=== PATIENT | female | born 1945 | race Caucasian/White ===

== ENCOUNTER 2018-01-22 17:34 | Inpatient (IN) ==
[2018-01-22] MEDS ORDERED: Clindamycin 600 mg/NS Premix 600 MG/50 ML PIGGYBACK IV.SIG ONE (19:51)
[2018-01-22] MEDS ORDERED: Acetaminophen 325 MG Tablet PO ONE (19:51)
[2018-01-22] MEDS ORDERED: Sod Chloride 0.9% Inj 1,000 ML IV.SIG SCH (20:00)
[2018-01-22 20:09] LABS: Baso % (Auto) 0.3 % (0.0-2.0); Eos % (Auto) 0.3 % (0.0-4.0); Hematocrit 34.1 % (35.0-46.0); Hemoglobin 11.6 gm/dL (11.6-15.3); Lymph # (Auto) 0.6 th/mm3 (1.0-4.8); Lymph % (Auto) 7.1 % (9.0-44.0); Mean Corpuscular Volume 103.2 fL (80.0-100.0); Mean Platelet Volume 6.5 fL (7.0-11.0); Mono # (Auto) 0.3 th/mm3 (0.0-0.9); Mono % (Auto) 2.9 % (0.0-8.0); Neut # (Auto) 8.2 th/mm3 (1.8-7.7); Neut % (Auto) 89.4 % (16.0-70.0); Platelet Count 198 th/mm3 (150-450); Red Cell Distribution Width 12.5 % (11.6-17.2); White Blood Count 9.1 th/mm3 (4.0-11.0)
[2018-01-22 20:16] LABS: Chloride 100 meq/L (98-107); Potassium 3.6 meq/L (3.5-5.1); Sodium 134 meq/L (136-145)
--- NOTE | 2018-01-22 20:19 | XR ---
EXAM DATE: 01/22/2018 8:15 PM EDT AGE/SEX: 72 years / Female INDICATIONS: Right foot ulcer with drainage and fever. CLINICAL DATA: This is the patient's initial encounter. Patient reports that signs and symptoms have been present for 4 - 6 days and indicates a pain score of 5/10. MEDICAL/SURGICAL HISTORY: None. . Right foot surgery. COMPARISON: POI, XR FOOT (MIN 3 VIEWS), RIGHT, 06/27/2017. . FINDINGS: 3 views of the right foot. Diffuse bony mineralization. Compression loraine in place at the fifth met atarsal base. No fracture line identified. Alignment within normal limits. No evidence of focal bone erosion. Prominent soft tissue swelling of the plantar aspect of the great toe adjacent to the metata rsophalangeal joint. Prominent osteophytes of the second and third toe interphalangeal joints. CONCLUSION: 1. Severe plantar soft tissue swelling. No evidence of focal bone erosion. 2. 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 Electronically signed by: Félix Miller MD 01/22/2018 8:17 PM EDT
[2018-01-22 20:20] LABS: Albumin 3.7 g/dL (3.4-5.0); Anion Gap 10 meq/L (5-15); Blood Urea Nitrogen 9 mg/dL (7-18); Calcium 8.6 mg/dL (8.5-10.1); Carbon Dioxide 23.7 meq/L (21.0-32.0); Glucose,Random 108 mg/dL (74-106)
[2018-01-22 20:23] LABS: Alanine Aminotransferase 24 U/L (10-53); Aspartate Aminotransferase 20 U/L (15-37); Glomerular Filtration Rate 70 mL/min (>89)
[2018-01-22 20:25] LABS: Total Protein 7.6 g/dL (6.4-8.2)
[2018-01-22 20:26] LABS: Alkaline Phosphatase 89 U/L (45-117)
--- NOTE | 2018-01-22 20:39 | ED ---
HPI General Chief complaint: Skin/Abscess/Foreign Body Stated complaint: R foot ulcer x 4 days Time Seen by Provider: 01/22/18 19:46 Source: patient Mode of arrival: ambulatory Limitations: no limitations History of Present Illness HPI narrative: Patient is a 72 year old female who comes in complaining of drainage from her right foot. She has a nonhealing ulcer to this foot and says it occasionally gets infected. She says she has noticed drainage from the wound for the past 3 days. She also reports feeling weak and generally ill. She has not taken anything for her symptoms. She denies cough or cold. She denies urinary symptoms. She denies nausea or vomiting. Severity is mild to moderate. Related Data Home Medications Medication Instructions Recorded Confirmed atorvastatin 40 mg PO DAILY 01/22/18 01/22/18 duloxetine [Cymbalta] 60 mg PO DAILY 01/22/18 01/22/18 gabapentin 400 mg PO QID 01/22/18 01/22/18 hydrocodone-acetaminophen 1 tab PO QID 01/22/18 01/22/18 levothyroxine 100 mcg PO DAILY 01/22/18 01/22/18 Allergies Allergy/AdvReac Type Severity Reaction Status Date / Time penicillin G Allergy Severe Hives Unverified 01/22/18 18:06 codeine Allergy Mild Rash Unverified 01/22/18 18:06 Review of Systems ROS: all other systems reviewed are negative Constitutional Reports chills and Reports fever(s) ENT Denies dizziness Cardiovascular Denies chest pain Respiratory Denies cough and Denies dyspnea Gastrointestinal Denies nausea and Denies vomiting Musculoskeletal Reports myalgias Integumentary/Breasts Reports wounds Neurologic Denies focal weakness and Denies numbness PMFSH Medical History Medical History Hx of ectopic (Acute) Hx of fracture of femur (Acute) Hx of fracture of right hip (Acute) Hx of fracture of foot (Acute) High cholesterol (Acute) Thyroid disease (Acute) Charcot Lashawn Tooth muscular atrophy (Acute) Social History Social History Substance History: No History of Abuse Second Hand Smoke Exposure: No Smoking Status: Never smoker How Often Do You Have a Drink Containing Alcohol: 2 to 3 times a week Recent Travel in [facility] within the Last 8 Weeks: No Recent Out of Country Travel within the Last 8 Weeks: No Immunization History Tetanus Immunization: >5 Years Hx Influenza Vaccine This Season: Yes Exam Narrative Exam Narrative: GENERAL: Awake and alert, in no acute distress. SKIN: Ulcer to the bottom of the right foot, oozing pus. Erythema of the right foot. HEAD: Atraumatic. Normocephalic. EYES: Pupils equal and round. No scleral icterus. ENT: Mucous membranes pink and moist. NECK: Trachea midline. No JVD. CARDIOVASCULAR: Regular rate and rhythm. No murmur appreciated. RESPIRATORY: No accessory muscle use. Clear to auscultation. Breath sounds equal bilaterally. GASTROINTESTINAL: Abdomen soft, non-tender, nondistended. MUSCULOSKELETAL: No obvious deformities. No clubbing. No cyanosis. No edema. NEUROLOGICAL: Awake and alert. No obvious cranial nerve deficits. Motor grossly within normal limits. Normal speech. PSYCHIATRIC: Appropriate mood and affect; insight and judgment normal. Course Initial Documented Vital Signs Temperature 100.2 F H 01/22/18 18:04 Pulse Rate 120 H 01/22/18 18:04 Respiratory Rate 16 01/22/18 18:04 Blood Pressure 138/62 01/22/18 18:04 Pulse Oximetry 97 01/22/18 18:04 Last Documented Vital Signs Temperature 97.8 F 01/23/18 00:00 Pulse Rate 97 H 01/23/18 00:00 Respiratory Rate 20 01/23/18 00:00 Blood Pressure 110/56 L 01/23/18 00:00 Pulse Oximetry 97 01/23/18 00:00 Medical Decision Making MDM Narrative Medical decision making narrative: Patient is a 72-year-old female who comes in due to concerns for infection of her foot. Exam shows an ulcer to the bottom of the foot that is draining pus. IV established, labs sent. Patient given IV fluids, Tylenol, clindamycin. XR of the foot shows soft tissue swelling, no evidence of cristine involvement. Patient meets SIRS criteria. Admitted for further management. Medical Screen Exam Complete: Yes Emergency Medical Condition: Yes Differential Diagnosis Differential Diagnosis: Cellulitis versus abscess versus sepsis Medical Records Medical records reviewed: Yes I reviewed the patient's medical records. Lab Data Lab results reviewed: Yes I reviewed the patient's lab results. Result diagrams: 01/22/18 20:00 01/22/18 20:00 Lab Results 01/22/18 01/22/18 01/22/18 Range/Units 20:00 20:00 20:00 CBC w Diff Auto diff final WBC 9.1 (4.0-11.0) th/mm3 RBC 3.30 L (4.00-5.30) mil/mm3 Hgb 11.6 (11.6-15.3) gm/dL Hct 34.1 L (35.0-46.0) % MCV 103.2 H (80.0-100.0) fL MCH 35.0 H (27.0-34.0) pg MCHC 34.0 (32.0-36.0) % RDW 12.5 (11.6-17.2) % Plt Count 198 (150-450) th/mm3 MPV 6.5 L (7.0-11.0) fL Neut % (Auto) 89.4 H (16.0-70.0) % Lymph % (Auto) 7.1 L (9.0-44.0) % [place] % (Auto) 2.9 (0.0-8.0) % Eos % (Auto) 0.3 (0.0-4.0) % Baso % (Auto) 0.3 (0.0-2.0) % Neut # (Auto) 8.2 H (1.8-7.7) th/mm3 Lymph # (Auto) 0.6 L (1.0-4.8) th/mm3 [place] # (Auto) 0.3 (0.0-0.9) th/mm3 Eos # (Auto) 0.0 (0.0-0.4) th/mm3 Baso # (Auto) 0.0 (0.0-0.2) th/mm3 WBC Differential . Differential Comment . Sodium 134 L (136-145) meq/L Potassium 3.6 (3.5-5.1) meq/L Chloride 100 (98-107) meq/L Carbon Dioxide 23.7 (21.0-32.0) meq/L Anion Gap 10 (5-15) meq/L BUN 9 (7-18) mg/dL Creatinine 0.81 (0.50-1.00) mg/dL Estimated GFR 70 L (>89) mL/min Random Glucose 108 H (74-106) mg/dL Lactic Acid 1.1 (0.4-2.0) mmol/L Calcium 8.6 (8.5-10.1) mg/dL Total Bilirubin 0.8 (0.2-1.0) mg/dL AST 20 (15-37) U/L ALT 24 (10-53) U/L Alkaline Phosphatase 89 (45-117) U/L Total Protein 7.6 (6.4-8.2) g/dL Albumin 3.7 (3.4-5.0) g/dL Imaging Data Radiologist's impression: Foot X-Ray 01/22/18 19:52 CONCLUSION: 1. Severe plantar soft tissue swelling. No evidence of focal bone erosion. 2. 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 Discharge Plan Discharge Disposition Patient Disposition: 30 Still Patient Discharge Condition Condition: Stable Discharge Details Diagnosis: Cellulitis, SIRS (systemic inflammatory response syndrome) Physicians Team ED Provider: Jen Machado Primary Care Provider: UNKNOWN, Attending Provider: Prerna Dimas Discharge Interventions Interventions: ED Discharge Assessment Last Done: 01/22/18 21:48 Vital Signs Last Done: 01/22/18 19:50 Status ED Status: Left Department Discharge Information Discharge Date/Time: 01/22/18 21:50
[2018-01-22] MEDS ORDERED: Morphine Inj 4 MG/ML Vial IV.PUSH PRN (20:57)
[2018-01-22] MEDS ORDERED: Acetaminophen 325 MG Tablet PO PRN (20:58)
[2018-01-22] MEDS ORDERED: Bisacodyl 10 MG Supp RECTAL PRN (20:58)
[2018-01-22] MEDS: Senna/Docusate Sodium 8.6/50 MG Tablet PO SCH (21:47)
[2018-01-22] MEDS: Gabapentin 400 MG Capsule PO SCH (22:05)
[2018-01-23] MEDS: Clindamycin 900 mg/NS Premix 900 MG/50 ML PIGGYBACK IV.SIG SCH ×4 (04:55→22:31)
[2018-01-23 08:49] LABS: Chloride 103 meq/L (98-107); Potassium 3.7 meq/L (3.5-5.1); Sodium 137 meq/L (136-145)
[2018-01-23] MEDS: Duloxetine 60 MG DR Capsule PO SCH (08:51)
[2018-01-23] MEDS: Gabapentin 400 MG Capsule PO SCH ×4 (08:51→21:22)
[2018-01-23] MEDS: Senna/Docusate Sodium 8.6/50 MG Tablet PO SCH (08:51)
[2018-01-23] MEDS: Levothyroxine 100 MCG Tablet PO SCH (08:51)
[2018-01-23] MEDS: Enoxaparin Inj 40 MG/0.4 ML Syringe SQ SCH (08:52)
[2018-01-23 09:17] LABS: Calcium 8.3 mg/dL (8.5-10.1)
[2018-01-23 09:18] LABS: Anion Gap 10 meq/L (5-15); Carbon Dioxide 24.3 meq/L (21.0-32.0)
[2018-01-23 09:23] LABS: Alanine Aminotransferase 24 U/L (10-53); Albumin 3.1 g/dL (3.4-5.0); Aspartate Aminotransferase 32 U/L (15-37); Blood Urea Nitrogen 9 mg/dL (7-18); Glomerular Filtration Rate 80 mL/min (>89); Glucose,Random 94 mg/dL (74-106); Total Protein 6.8 g/dL (6.4-8.2)
[2018-01-23 09:31] LABS: Baso % (Auto) 0.3 % (0.0-2.0); Eos % (Auto) 0.4 % (0.0-4.0); Hematocrit 30.7 % (35.0-46.0); Hemoglobin 10.3 gm/dL (11.6-15.3); Lymph # (Auto) 0.4 th/mm3 (1.0-4.8); Lymph % (Auto) 9.4 % (9.0-44.0); Mean Corpuscular HGB Conc 33.6 % (32.0-36.0); Mean Platelet Volume 5.9 fL (7.0-11.0); Mono # (Auto) 0.3 th/mm3 (0.0-0.9); Mono % (Auto) 6.1 % (0.0-8.0); Neut # (Auto) 3.6 th/mm3 (1.8-7.7); Neut % (Auto) 83.8 % (16.0-70.0); Red Blood Count 2.96 mil/mm3 (4.00-5.30); Red Cell Distribution Width 12.2 % (11.6-17.2); White Blood Count 4.3 th/mm3 (4.0-11.0)
[2018-01-23 10:00] LABS: Alkaline Phosphatase 84 U/L (45-117)
--- NOTE | 2018-01-23 11:12 | P.HP ---
History of Present Illness Primary Care Physician: UNKNOWN Chief Complaint: Right foot wound draining pus History of Present Illness: 72-year-old female with known history of chronic foot wound, hypothyroidism, hyperlipidemia who presented the hospital because of drainage of fluid from her wound. Patient states that she has had this pressure ulceration on her foot for years. She is under outpatient management by her material controller Dr. Mendiola as well as Dr. Archer at wound care clinic. Patient just saw Dr. Archer a week ago for her foot wound. Patient states that her wound to be doing well until yesterday when she went to go take a shower she stepped on her foot in noticed pus coming out of the wound. Because of that reason she came to the hospital for evaluation. Patient had workup done emergency department patient had x-ray done which did not indicate any acute abnormality. Laboratory studies did not indicate any acute abnormality. Patient did have low-grade fever. Is recommended that the patient be admitted for further evaluation and management. Patient indicates that she has been having chills for the last 3 days. Patient did have a low-grade fever here in the hospital 100.6. Patient denies any shortness of breath, dyspnea, abdominal pain, nausea , vomiting. - Diagnosis (1) Fever Inpatient Certification: I certify that the inpatient services were ordered in accordance with Medicare regulations governing the order. This includes certification that hospital inpatient services are reasonable and necessary and in the case of services not specified as inpatient-only under 42 CFR 419.22(n), that they are appropriately provided as inpatient services in accordance to with the 2-midnight benchmark under 43 CFR 412.3(e) Estimated Total Length of Stay (Days): 2 Plans for Post Hospital Care: Not yet determined Review of Systems All other systems reviewed negative except as stated in HPI Constitutional: Reports chills, Reports fever(s) Skin/Breast: Reports wounds PMFSH - History History Provided By: Patient - Medical History Medical History: Medical History (Last Reviewed 01/22/18 @ 20:37 by Jen Machado MD) Hx of fracture of foot (Acute) High cholesterol (Acute) Thyroid disease (Acute) Charcot Lashawn Tooth muscular atrophy (Acute) - Surgical History Surgical History: Surgical History (Last Updated 01/23/18 @ 11:08 by MURIEL Garcia) Hx of ectopic (Acute) Hx of fracture of femur (Acute) History of repair of right hip joint Status post right foot surgery - Family History Family History: Family History (Last Updated 01/23/18 @ 10:51 by MURIEL Garcia) Father History of stomach cancer - Tobacco History Second Hand Smoke Exposure: No Smoking Status: Never smoker - Alcohol History How Often Do You Have a Drink Containing Alcohol: 2 to 3 times a week - Substance Use History Substance History: No History of Abuse - Travel History Recent Travel in the [place] Within the Last 8 Weeks: No Recent Travel Out of the Country Within the Last 8 Weeks: No - Immunization History Tetanus Immunization: >5 Years Hx Influenza Vaccine This Season: Yes Medications and Allergies Active Medications: Active Medications Acetaminophen (Tylenol) 650 mg PO Q4H PRN PRN Reason: Temp > 100.4 Last Admin: 01/23/18 04:55 Dose: 650 mg Hydrocodone Bitart/Acetaminophen ([place] 5/325) 1 tab PO Q4H PRN PRN Reason: PAIN 3-5 Last Admin: 01/23/18 02:39 Dose: 1 tab Al Hydroxide/Mg Hydroxide (Milk Of Magnesia Liq) 30 ml PO Q12H PRN PRN Reason: Mild Constipation Atorvastatin Calcium (Lipitor) 40 mg PO DAILY [facility] Last Admin: 01/23/18 08:51 Dose: 40 mg Bisacodyl (Dulcolax Supp) 10 mg RECTAL DAILY PRN PRN Reason: SEVERE CONSITIPATION Duloxetine HCl (Cymbalta) 60 mg PO DAILY [facility] Last Admin: 01/23/18 08:51 Dose: 60 mg Enoxaparin Sodium (Lovenox Inj) 40 mg SQ Q24H [facility] Last Admin: 01/23/18 08:52 Dose: 40 mg Gabapentin (Neurontin) 400 mg PO QID [facility] Last Admin: 01/23/18 08:51 Dose: 400 mg Sodium Chloride (Ns Inj) 1,000 mls @ 0 mls/hr IV.SIG BOLUS [facility] Last Infusion: 01/22/18 21:43 Dose: Infused Clindamycin/Sodium Chloride (Cleocin 900 Mg/Ns Premix) 900 mg in 50 mls @ 100 mls/hr IV.SIG Q8H [facility] Last Admin: 01/23/18 05:30 Dose: Not Given Lactulose (Lactulose Liq) 30 ml PO DAILY PRN PRN Reason: SEVERE CONSITIPATION Levothyroxine Sodium (Synthroid) 100 mcg PO DAILY@0800 [facility] Last Admin: 01/23/18 08:51 Dose: 100 mcg Morphine Sulfate (Morphine Inj) 2 mg IV.PUSH Q4H PRN PRN Reason: PAIN 6-10 Ondansetron HCl (Zofran Inj) 4 mg IV.PUSH Q6H PRN PRN Reason: NAUSEA OR VOMITING Senna/Docusate Sodium (Lucinda-Colace) 1 tab PO BID [facility] Last Admin: 01/23/18 08:51 Dose: 1 tab Sennosides (Senokot) 17.2 mg PO Q12H PRN PRN Reason: Moderate Constipation Allergies Allergy/AdvReac Type Severity Reaction Status Date / Time penicillin G Allergy Severe Hives Unverified 01/22/18 18:06 codeine Allergy Mild Rash Unverified 01/22/18 18:06 Home Medications Medication Instructions Recorded Confirmed Type atorvastatin 40 mg PO DAILY 01/22/18 01/22/18 History duloxetine [Cymbalta] 60 mg PO DAILY 01/22/18 01/22/18 History gabapentin 400 mg PO QID 01/22/18 01/22/18 History hydrocodone-acetaminophen 1 tab PO QID 01/22/18 01/22/18 History levothyroxine 100 mcg PO DAILY 01/22/18 01/22/18 History Exam Vital signs: Vital Signs 01/22/18 18:04 01/22/18 19:40 01/22/18 19:50 Temperature 100.2 F H 100.2 F H Pulse Rate 120 H 120 H 119 H Respiratory Rate 16 18 20 Blood Pressure 138/62 133/62 Pulse Oximetry 97 97 99 01/22/18 21:40 01/23/18 00:00 01/23/18 04:00 Temperature 98.6 F 97.8 F 100.6 F H Pulse Rate 95 H 97 H 129 H Respiratory Rate 18 20 20 Blood Pressure 138/76 110/56 L 118/55 L Pulse Oximetry 97 95 01/23/18 08:00 Temperature 99.8 F H Pulse Rate 103 H Respiratory Rate 20 Blood Pressure 111/57 L Pulse Oximetry 95 Intake & Output 01/22/18 01/23/18 01/23/18 18:59 06:59 18:59 Intake Total 1580 / 1580 Balance 1580 / 1580 Weight 63.4 kg 62.8 kg Intake: IV 1100 / 1100 Cleocin 600 mg/NS Premix 600 mg 50 / 50 In 50 ml @ 100 mls/hr IV.SIG ONCE ONE Rx#:[id number] Cleocin 900 mg/NS Premix 900 mg 50 / 50 In 50 ml @ 100 mls/hr IV.SIG Q8H GISELA Rx#:[id number] NS Inj 1,000 ML @ Wide Open IV. 1000 / 1000 SIG BOLUS GISELA Rx#:[id number] Oral 480 / 480 Other: # Voids 5 Weight On Admission 62.7 kg Narrative: GENERAL: Well-developed, well-nourished, in no acute distress. alert and orientated HEENT: Head is normocephalic without any lesions or masses noted. Facial features are symmetric. Eyes: Pupils equal round reactive to light. Extraocular muscles are intact. Conjunctivae were clear. Oropharyngeal: Pharynx without any erythema edema. Tongue is midline without deviation. Buccal mucosa is moist without any masses or lesions NECK: Supple without any masses. Trachea midline no deviation. No JVD, no bruits are appreciated CARDIAC: Regular rhythm, regular rate. S1/S2 are heard. No murmurs gallops or rubs. LUNGS: Clear to auscultation bilaterally. No wheeze, rhonchi or rales. No use of accessory muscles on inspiration or expiration. ABDOMEN: Soft, nontender. Nondistended. Bowel sounds heard in all 4 quadrants. No organomegaly or masses. Negative rebound, negative guarding EXTREMITIES: No edema, pulses are equal bilaterally. No cyanosis or clubbing NEUROLOGY: Mood and affect appear appropriate. Cranial nerves II through XII grossly intact. Muscle strength 5/5 in upper and lower extremities bilaterally. Deep tendon reflexes are 2+ in upper and lower extremities bilaterally. RIGHT FOOT: Patient does have pressure ulceration noted over the MCP joint of the right foot first digit. No fluctuance or exudate was noted on palpation. There is a opening approximately 1 cm. Results - Labs CBC & Chem 7: 01/22/18 20:00 01/23/18 07:36 Labs: Laboratory Results - last 24 hr 01/22/18 01/22/18 01/22/18 20:00 20:00 20:00 CBC w Diff Auto diff final WBC 9.1 RBC 3.30 L Hgb 11.6 Hct 34.1 L MCV 103.2 H MCH 35.0 H MCHC 34.0 RDW 12.5 Plt Count 198 MPV 6.5 L Neut % (Auto) 89.4 H Lymph % (Auto) 7.1 L [place] % (Auto) 2.9 Eos % (Auto) 0.3 Baso % (Auto) 0.3 Neut # (Auto) 8.2 H Lymph # (Auto) 0.6 L [place] # (Auto) 0.3 Eos # (Auto) 0.0 Baso # (Auto) 0.0 WBC Differential . Differential Comment . Sodium 134 L Potassium 3.6 Chloride 100 Carbon Dioxide 23.7 Anion Gap 10 BUN 9 Creatinine 0.81 Estimated GFR 70 L Random Glucose 108 H Lactic Acid 1.1 Calcium 8.6 Total Bilirubin 0.8 AST 20 ALT 24 Alkaline Phosphatase 89 Total Protein 7.6 Albumin 3.7 01/23/18 07:36 CBC w Diff WBC RBC Hgb Hct MCV MCH MCHC RDW Plt Count MPV Neut % (Auto) Lymph % (Auto) [place] % (Auto) Eos % (Auto) Baso % (Auto) Neut # (Auto) Lymph # (Auto) [place] # (Auto) Eos # (Auto) Baso # (Auto) WBC Differential Differential Comment Sodium 137 Potassium 3.7 Chloride 103 Carbon Dioxide 24.3 Anion Gap 10 BUN 9 Creatinine 0.72 Estimated GFR 80 L Random Glucose 94 Lactic Acid Calcium 8.3 L Total Bilirubin 0.6 AST 32 ALT 24 Alkaline Phosphatase 84 Total Protein 6.8 D Albumin 3.1 L D - Imaging Impressions Foot X-Ray 01/22/18 19:52 CONCLUSION: 1. Severe plantar soft tissue swelling. No evidence of focal bone erosion. 2. 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 Caprini VTE Risk Assessment Caprini VTE Risk Assessment: Moderate/High Risk (score >= 2) Caprini Risk Assessment Model: Point Value = 1 Point Value = 2 Point Value = 3 Point Value = 5 Age 41-60 Minor surgery BMI > 25 kg/m2 Swollen legs Varicose veins or History of unexplained or recurrent spontaneous Oral contraceptives or hormone replacement Sepsis (< 1 month) Serious lung disease, including pneumonia (< 1 month) Abnormal pulmonary function Acute myocardial infarction Congestive heart failure (< 1 month) History of inflammatory bowel disease Medical patient at bed rest Age 61-74 Arthroscopic surgery Major open surgery (> 45 min) Laparoscopic surgery (> 45 min) Malignancy Confined to bed (> 72 hours) Immobilizing plaster cast Central venous access Age >= 75 History of VTE Family history of VTE Factor V Leiden Prothrombin [id number] Lupus anticoagulant Anticardiolipin antibodies Elevated serum homocysteine Heparin-induced thrombocytopenia Other congenital or acquired thrombophilia Stroke (< 1 month) Elective arthroplasty Hip, pelvis, or leg fracture Acute spinal cord injury (< 1 month) Prophylaxis Regimen: Total Risk Factor Score Risk Level Prophylaxis Regimen 0-1 Low Early ambulation 2 Moderate Order ONE of the following: *Sequential Compression Device (SCD) *Heparin 5000 units SQ BID 3-4 Higher Order ONE of the following medications: *Heparin 5000 units SQ TID *Enoxaparin/Lovenox 40 mg SQ daily (WT < 150 kg, CrCl > 30 mL/min) *Enoxaparin/Lovenox 30 mg SQ daily (WT < 150 kg, CrCl > 10-29 mL/min) *Enoxaparin/Lovenox 30 mg SQ BID (WT < 150 kg, CrCl > 30 mL/min) AND/OR *Sequential Compression Device (SCD) 5 or more Highest Order ONE of the following medications: *Heparin 5000 units SQ TID (Preferred with Epidurals) *Enoxaparin/Lovenox 40 mg SQ daily (WT < 150 kg, CrCl > 30 mL/min) *Enoxaparin/Lovenox 30 mg SQ daily (WT < 150 kg, CrCl > 10-29 mL/min) *Enoxaparin/Lovenox 30 mg SQ BID (WT < 150 kg, CrCl > 30 mL/min) AND *Sequential Compression Device (SCD) Assessment and Plan - Assessment (1) Fever Code(s): R50.9 - Fever, unspecified Status: Acute - Plan Chronic right foot ulceration -X-ray indicated severe plantar soft tissue swelling, no focal bone erosion -Patient is followed by podiatry Dr. Mendiola, wound care Dr Archer -Patient has been started on clindamycin IV -We will consult wound care nurse and physician for further evaluation and management Febrile illness -Unknown etiology at this time. -Only source of this time identified could be chronic foot ulceration, however will need to obtain chest x-ray, urinalysis, influenza testing -Blood cultures are negative for 1 day Hyperlipidemia, hypothyroidism -Home medications continued DVT prevention -Subcutaneous Lovenox
[2018-01-23 12:21] LABS: Platelet Count 89 th/mm3 (150-450)
[2018-01-23 12:22] LABS: Platelet Morphology Clumped (Normal)
--- NOTE | 2018-01-23 14:18 | XR ---
EXAM DATE: 01/23/2018 2:02 PM EDT AGE/SEX: 72 years / Female INDICATIONS: . Fever, foot infection. CLINICAL DATA: This is the patient's subsequent encounter. Patient reports that signs and symptoms h ave been present for 4 - 6 days and indicates a pain score of 0/10. MEDICAL/SURGICAL HISTORY: None. None. COMPARISON: No prior exams available for comparison. FINDINGS: AP and lateral views of the chest demonstrate the lungs to be symmetrically aerated without evidence of mass, infiltrate or effusion. The cardiomediastinal contours are unremarkable. Osseous structure s are intact. CONCLUSION: No acute cardiopulmonary findings. Electronically signed by: Angelito Menjivar MD 01/23/2018 2:17 PM EDT
[2018-01-23 18:48] LABS: Bilirubin,Urine Negative (Negative); Clarity,Urine Clear (Clear); Color,Urine Yellow (Yellw/Straw); Glucose,Urine (UA) Negative (Negative); Leukocyte Esterase,Urine Negative (Negative); Nitrite,Urine Negative (Negative)
[2018-01-23 18:53] LABS: Bacteria,Urine Rare /hpf; Squamous Epithelial Cell,Urine 0-5 /hpf (0-5); WBC,Urine 0-5 /hpf (0-5)
--- NOTE | 2018-01-23 20:20 | MB ---
cc: Marino Harvey DPM DATE: 01/23/2018 REASON FOR CONSULTATION: Chronic right foot ulceration. HISTORY OF PRESENT ILLNESS: This is a 72-year-old female who complains of increased drainage of the right foot. She has a nonhealing ulcer and she is worried that it is getting more infected. The patient reportedly sees an outpatient internal control consultant, Dr. Mendiola, also Dr. Tanja Archer, a wound care doctor known to the hospital. It appears that I have been asked to evaluate the patient for assistance with possible management due to Dr. Archer's unavailability. PAST MEDICAL HISTORY: [id number], known peripheral neuropathy, history of foot fracture, high cholesterol, thyroid disease. OUTPATIENT MEDICATIONS: Reviewed. INPATIENT MEDICATIONS: The patient is receiving clindamycin. Please see complete medication list in chart. ALLERGIES: PENICILLIN G AND CODEINE. PHYSICAL EXAMINATION: VITAL SIGNS: Temperature 97.3, pulse rate 108, respiratory rate 20, blood pressure 113/57. She is saturating 96% on room air. GENERAL: This is an alert and oriented female. She appears to be thin. EXTREMITIES: There is obvious muscle wasting below the patient's knees. There is an extenuated first ray with obvious wasting of the interossei and the plantar musculature. Upon evaluating the right foot, there is a prominent first MPJ with an open draining hemorrhagic callus that does probe. It does not clearly probe to bone; however, depth is unsure. There is no bone exposed. There is no tendon exposed. There is a black indurated area that correlates more with a hemorrhagic blister that is open and draining measuring approximately 1.5 cm in circumference. There is no odor. There is minimal redness. There is no redness on the top of the foot. Pedal pulses are palpable. Sensation is decreased to light touch. There appears to be fairly good range of motion of the foot and ankle, but there is obvious weakness upon attempting muscle strength of the 4 quadrants. LABORATORY FINDINGS: White blood cells 4.3, hemoglobin and hematocrit 10 and 30, platelet count 89. Blood culture, no growth 1 day. MRI ordered and pending to rule out deep extension of the soft tissue versus osteomyelitis of the first metatarsal as well as sesamoids. ASSESSMENT AND PLAN: Right foot chronic ulcer, partial thickness ulcer, rule out osteomyelitis. From a podiatric surgery standpoint, I will evaluate for the need for bone biopsy or further incision and drainage. At this time, it appears to be an open draining blister that does not require any intervention. I will advise pending the MRI. If the MRI appears to be normal, recommend nonweightbearing or possible Cam walking boot immobilization and return to established doctors, Dr. Mendiola and Dr. Archer. CHLOÉ Cabello/john , 04:42 PM , 04:51 PM
[2018-01-24] MEDS: Senna/Docusate Sodium 8.6/50 MG Tablet PO SCH ×2 (00:29→10:19)
[2018-01-24] MEDS: Clindamycin 900 mg/NS Premix 900 MG/50 ML PIGGYBACK IV.SIG SCH (06:11)
[2018-01-24] MEDS: Enoxaparin Inj 40 MG/0.4 ML Syringe SQ SCH (09:29)
[2018-01-24] MEDS: Levothyroxine 100 MCG Tablet PO SCH (09:29)
[2018-01-24] MEDS: Gabapentin 400 MG Capsule PO SCH ×2 (09:29→14:37)
[2018-01-24] MEDS: Duloxetine 60 MG DR Capsule PO SCH (09:29)
--- NOTE | 2018-01-24 09:51 | P.PNIM ---
Subjective Interval history: Follow up right foot ulcer, rule out osteomyelitis. Patient seen and examined, lying in bed comfortably in [facility]. Wound RN in this morning to see patient. Drainage minimal this morning. Pain is well controlled. No acute events overnight. VSS. Afebrile. Awaiting MRI this morning, rule out osteo. Physical Exam Vital signs: Vital Signs 01/23/18 11:54 01/23/18 16:00 01/23/18 20:00 Temperature 97 F L 97.3 F L 97.4 F L Pulse Rate 104 H 108 H 99 H Respiratory Rate 20 20 18 Blood Pressure 112/52 L 113/57 L 112/57 L Pulse Oximetry 96 96 95 01/24/18 00:00 01/24/18 08:00 Temperature 98.3 F 98.1 F Pulse Rate 88 98 H Respiratory Rate 18 21 Blood Pressure 108/57 L 120/53 L Pulse Oximetry 99 96 Intake & Output 01/23/18 01/24/18 01/24/18 18:59 06:59 18:59 Intake Total 511 / 511 580 / 580 Balance 511 / 511 580 / 580 Weight 64.8 kg Intake: IV 50 / 50 100 / 100 Cleocin 900 mg/NS Premix 900 mg 50 / 50 100 / 100 In 50 ml @ 100 mls/hr IV.SIG Q8H GISELA Rx#:[id number] Oral 461 / 461 Oral Supplement 480 / 480 Other: # Voids 3 2 Date of Last Bowel Movement 01/23/18 # Bowel Movements 1 Narrative: GENERAL: Well-developed, well-nourished patient in [facility]. SKIN: Warm and dry. No rash. HEAD: Normocephalic. Atraumatic. EYES: Pupils equal and round. No scleral icterus. No injection or drainage. ENT: No nasal bleeding or discharge. Mucous membranes pink and moist. NECK: Supple. Trachea midline. CARDIOVASCULAR: Regular rate and rhythm. S1, S2 noted. No murmur appreciated. RESPIRATORY: No accessory muscle use. Clear to auscultation. Breath sounds equal bilaterally. GASTROINTESTINAL: Abdomen soft, non-tender, nondistended. Normoactive bowel sounds x4. MUSCULOSKELETAL: No obvious deformities. Extremities without clubbing, cyanosis , or edema. NEUROLOGICAL: Awake and alert. No obvious cranial nerve deficits. Motor grossly within normal limits. 5/5 muscle strength in bilateral upper and lower extremities. Normal speech. PSYCHIATRIC: Appropriate mood and affect; insight and judgment normal. RIGHT FOOT: Patient does have pressure ulceration noted over the MCP joint of the right foot first digit. No fluctuance or exudate was noted on palpation. There is a opening approximately 1 cm. Results - Labs CBC & Chem 7: 01/23/18 09:25 01/23/18 07:36 Laboratory Results - last 24 hr 01/23/18 01/23/18 01/23/18 07:36 09:25 18:30 CBC w Diff Slide review pending WBC 4.3 D RBC 2.96 L Hgb 10.3 L Hct 30.7 L MCV 104.0 H MCH 35.0 H MCHC 33.6 RDW 12.2 Plt Count 89 L D MPV 5.9 L Neut % (Auto) 83.8 H Lymph % (Auto) 9.4 Bailey % (Auto) 6.1 Eos % (Auto) 0.4 Baso % (Auto) 0.3 Neut # (Auto) 3.6 Lymph # (Auto) 0.4 L Bailey # (Auto) 0.3 Eos # (Auto) 0.0 Baso # (Auto) 0.0 WBC Differential . Diff Scan Auto diff confirmed Differential Comment . Platelet Estimate Low L Platelet Morphology Clumped H Basophilic Stippling Faint H Alkaline Phosphatase 84 Urine Color Yellow Urine Clarity Clear Urine pH 7.0 Ur Specific [place] 1.010 Urine Protein Negative Urine Glucose (UA) Negative Urine Ketones Negative Urine Occult Blood Negative Urine Nitrate Negative Urine Bilirubin Negative Urine Urobilinogen 2.0 H Ur Leukocyte Esterase Negative Urine WBC 0-5 Ur Squamous Epith Cells 0-5 Urine Bacteria Rare H Micro UA Comment Culture not ind Ur Microscopic Review Microscopic reviewed Urine Culture Comments Culture not ind Microbiology 01/23/18 13:35 Nasal Wash Influenza Types A,B Antigen - Final Negative for FLU A and B antigen Infection due to influenza A or B cannot be ruled out since the antigen present in the sample may be below the detection limit of the test. 01/22/18 20:55 Blood - Peripheral Aerobic Blood Culture - Preliminary No growth in 1 day 01/22/18 20:55 Blood - Peripheral Anaerobic Blood Culture - Preliminary No growth in 1 day 01/22/18 21:00 Blood - Peripheral Aerobic Blood Culture - Preliminary No growth in 1 day 01/22/18 21:00 Blood - Peripheral Anaerobic Blood Culture - Preliminary No growth in 1 day - Imaging Impressions Chest X-Ray 01/23/18 00:00 CONCLUSION: No acute cardiopulmonary findings. Assessment and Plan - Assessment (1) Fever Code(s): R50.9 - Fever, unspecified Status: Acute - Plan This is a 72-year-old female with: Chronic right foot ulceration -X-ray indicated severe plantar soft tissue swelling, no focal bone erosion -Patient is followed by podiatry Dr. Mendiola, wound care Dr Archer -Patient has been started on clindamycin IV. Will continue for now. -Awaiting MRI of right foot, rule out osteomyelitis. -Consult appreciated from podiatry. senior technical analyst following. Febrile illness. Improved. -Unknown etiology at this time. -Only source of this time identified could be chronic foot ulceration. -CXR reviewed and negative. No leukocytosis. -UA negative. Influenza negative. -Blood cultures are negative for 1 day. Continue to monitor. Hyperlipidemia, hypothyroidism -Home medications continued. DVT prevention -Subcutaneous Lovenox.
[2018-01-24] MEDS ORDERED: Gadobutrol PF 2 MMOL/2 ML Vial (for RAD) IV.SIG ONE (13:37)
--- NOTE | 2018-01-24 13:56 | MR ---
EXAM DATE: 01/24/2018 1:50 PM EDT AGE/SEX: 72 years / Female INDICATIONS: Osteomyelitis. Wound 1st Metatarsal right foot. CLINICAL DATA: This is the patient's initial encounter. Patient reports that signs and symptoms have been present for 3 days and indicates a pain score of 0/10. MEDICAL/SURGICAL HISTORY: None. . Right foot. Right hip. COMPARISON: No prior exams available for comparison. TECHNIQUE: Multiplanar, multisequence MRI examination was performed without contrast and after th e intravenous administration of 6 ml Gadavist (gadobutrol) single exam dose. FINDINGS: Slightly motion limited exam Bones: There is a small cyst in the proximal navicular bone. The rest of the marrow signal is unremar kable. Joint Spaces: No joint effusion or loose bodies are seen. The joint spaces are preserved. Tendons: The flexor tendons are intact. Soft Tissues: Unremarkable. Other: The plantar fascia is intact. No signal abnormalities are seen in the plantar musculature. Post Contrast: There are no abnormal areas of enhancement in the marrow, muscle or soft tissues on im ages obtained after intravenous administration of gadolinium. CONCLUSION: 1. No evidence of significant marrow replacement or bony edema to suggest osteomyelitis. No obvious significant edema is noted Electronically signed by: Sg Palomo MD 01/24/2018 1:54 PM EDT
[2018-01-24 16:10] VITALS: BP 118/65; PULSE 85; RESP 20; TEMP 97.1; O2SAT 100
--- NOTE | 2018-01-24 17:15 | P.PNWCN ---
Wound Care Nurse Consult Description: Wound consult ordered by Mattie LLAMAS for wound management Communicated with: Travis ACUÑA, Kitty WILDER Recommendation: 1. Cleanse right plantar foot with normal saline pat dry. 2. Apply Puracol AG to wound base cover with adhesive dressing . 3. Leave Puracol in place x7 days change secondary dressing as needed for dislodgement. 4. Sign and date all dressings. 5. Follow up with out patient wound center. Additional information: Patient was seen today by underwriter [employer] and [employer] students for wound management.Patient alert and oriented x4 resting in bed in no acute distress.Dressing removed from Right lower extremity without difficulty.Patient noted to have plantar ulceration measuring 0.2cm x 0.2cm x0.2cm.Patient currently seeing out patient wound center.Wound cleansed with normal saline pat dry Puracol AG applied to wound base and covered with adhesive dressing. Dressing signed and dated patient tolerated wound care well will f/u with out patient wound center upon discharge. Wound/Pressure Injury - Patient Status Premedicated for Pain Prior to Dressing Change: No - Wound Right Foot Wound Assessment: Ongoing Wound Type: Traumatic Wound Is This a Chronic Wound: Yes Wound Bed Appearance: Tunneling/Undermining Surrounding Tissue Temperature: Cool Drainage Amount: None Drainage Odor: No Odor Dressing Status: Changed Topical: Povidine-Iodine (Betadine) Primary Dressing: Non-Adherent Gauze Pad Cover Dressing: Gauze Roll/Wrap Incision - Patient Status Premedicated for Pain Prior to Dressing Change: No
== END 2018-01-24 16:47 | disposition home or self-care (01) ==
LOC: PHED 17:34 → PHEDA 20:59 → PH3 21:50
PROVIDERS: ADMIT Family Medicine; ATTEND Family Medicine